=== PATIENT | male | born 1955 | race African-American/Black ===

== ENCOUNTER 2021-02-02 08:44 | Inpatient (IN) | payer MEDICARE, OTHER ==
[~2021-02-02] VITALS: Ht 172.7 cm; Wt 104.8 kg
[2021-02-02 10:01] LABS: BASOPHILS % 0.5 % (0.0-2.0); EOSINOPHILS % 0.8 % (0.0-5.0); HEMATOCRIT. 41.8 % (42.0-52.0); HEMOGLOBIN. 13.5 g/dL (14.0-18.0); LYMPHOCYTES % 19.4 % (20.0-50.0); MEAN CORPUSCULAR HEMOGLOBIN 29.9 pg (28.0-32.0); MEAN CORPUSCULAR VOLUME 92.9 fL (80.0-94.0); MEAN PLATELET VOLUME 10.5 fl (7.4-10.4); MONOCYTES % 5.1 % (2.0-8.0); NEUTROPHILS % 74.2 % (40.0-76.0); PLATELET 210 x1000/uL (130-400); RED CELL DISTRIBUTION WIDTH 14.5 % (11.6-14.6)
[2021-02-02 10:07] LABS: CHLORIDE 109 mEq/L (98-107)
[2021-02-02] MEDS ORDERED: IOHEXOL-300 100 ML BOTTLE ONE (11:43)
[2021-02-02 14:10] LABS: CLARITY URINE CLEAR (CLEAR); COLOR URINE YELLOW (YELLOW); KETONES URINE NEGATIVE (NEGATIVE); LEUKOCYTE ESTERASE URINE NEGATIVE (NEGATIVE); NITRITE URINE NEGATIVE (NEGATIVE); OCCULT BLOOD URINE NEGATIVE (NEGATIVE); PH URINE 7.5 (4.5-8.0); PROTEIN URINE TRACE (NEGATIVE); SPECIFIC GRAVITY URINE 1.013 (1.005-1.030); UROBILINOGEN URINE 0.2 E.U./dL (0.2-1.0)
[2021-02-02] MEDS ORDERED: IOHEXOL-350 100 ML BOTTLE ONE ×2 (17:16→23:13)
[2021-02-02] MEDS ORDERED: HEPARIN 5000 UNITS/ML VIAL IV NR (18:15)
[2021-02-02] MEDS ORDERED: HEPARIN 5000 UNITS/ML VIAL IV PRN ×3 (18:15→18:46)
[2021-02-02] MEDS ORDERED: ASPIRIN 325MG EC TABLET PO NR (18:15)
[2021-02-02] MEDS ORDERED: HEPARIN 25,000 UNITS PREMIX 250 ML IV PRN (18:15)
[2021-02-02 22:00] VITALS: BP 181/95
[2021-02-02] MEDS: AMLODIPINE 10MG TABLET PO SCH (23:23)
[2021-02-03] VITALS: BP 143/62
[2021-02-03] MEDS ORDERED: UBID10CA4 MT (00:08)
[2021-02-03] MEDS ORDERED: METOPROLOL PO (00:08)
[2021-02-03] MEDS ORDERED: AMLODIPINE PO (00:08)
[2021-02-03] MEDS ORDERED: ASPI-864 MT (00:08)
[2021-02-03 04:00] VITALS: BP 138/43
[2021-02-03 08:00] VITALS: BP 166/52
[2021-02-03] MEDS ORDERED: ENOXAPARIN 40MG/0.4ML SYR SUBCUT SCH (09:00)
[2021-02-03] MEDS ORDERED: PNEUMOCOCCAL 23-VAL P-SAC VAC 0.5 ML IM ONE (10:00)
[2021-02-03] MEDS: ASPIRIN 81MG TABLET PO SCH (11:44)
[2021-02-03] MEDS: AMLODIPINE 10MG TABLET PO SCH (11:44)
[2021-02-03 12:00] VITALS: BP 176/72
[2021-02-03] MEDS: HYDRALAZINE HCL 50MG TABLET PO SCH ×2 (14:40→21:45)
[2021-02-03 16:00] VITALS: BP 167/66
[2021-02-03] MEDS ORDERED: IPRATROPIUM/ALBUTEROL 0.5-3(2.5)MG/3ML NEB HHN PRN (17:30)
[2021-02-03] MEDS ORDERED: DOCUSATE SODIUM 100MG CAPSULE PO PRN (17:30)
[2021-02-03] MEDS ORDERED: NALOXONE HCL 0.4MG/ML VIAL IV PRN (17:30)
[2021-02-03] MEDS ORDERED: CLONIDINE 0.1MG TABLET PO PRN (17:30)
[2021-02-03] MEDS ORDERED: HYDROCODONE/ACETAMINOPHEN 5/325MG TABLET PO PRN (17:30)
[2021-02-03] MEDS ORDERED: ACETAMINOPHEN 325MG TABLET PO PRN (17:30)
[2021-02-03 19:42] VITALS: BP 170/68
[2021-02-03] MEDS ORDERED: DOPAMINE 400MG/250ML PREMIX 250 ML IV PRN (20:00)
[2021-02-04 00:05] VITALS: BP 123/56
[2021-02-04 00:23] LABS: CREATINE KINASE MB FRACTION 1.1 ng/mL (0.5-3.6)
[2021-02-04 04:00] VITALS: BP 144/62
[2021-02-04] MEDS: HYDRALAZINE HCL 50MG TABLET PO SCH ×3 (05:41→20:52)
[2021-02-04 06:59] LABS: BASOPHILS % 0.3 % (0.0-2.0); EOSINOPHILS % 1.7 % (0.0-5.0); HEMATOCRIT. 42.2 % (42.0-52.0); HEMOGLOBIN. 13.9 g/dL (14.0-18.0); LYMPHOCYTES % 21.9 % (20.0-50.0); MEAN CORPUSCULAR HEMOGLOBIN 30.2 pg (28.0-32.0); MEAN CORPUSCULAR VOLUME 91.8 fL (80.0-94.0); MEAN PLATELET VOLUME 10.8 fl (7.4-10.4); MONOCYTES % 9.8 % (2.0-8.0); NEUTROPHILS % 66.3 % (40.0-76.0); PLATELET 197 x1000/uL (130-400); RED BLOOD CELL COUNT 4.59 mill/uL (4.7-6.1); RED CELL DISTRIBUTION WIDTH 14.4 % (11.6-14.6)
[2021-02-04 07:06] LABS: CHLORIDE 109 mEq/L (98-107)
[2021-02-04 07:18] LABS: PHOSPHORUS 3.3 mg/dL (2.5-4.9); T4 FREE 1.17 ng/dL (0.76-1.46)
[2021-02-04 07:19] LABS: LDL CHOLESTEROL 82 mg/dL (5-100)
[2021-02-04 07:20] LABS: HDL CHOLESTEROL 42 mg/dL (40-59)
[2021-02-04 08:00] VITALS: BP 164/62
[2021-02-04] MEDS: APIXABAN 5 MG TABLET PO SCH ×2 (08:50→17:09)
[2021-02-04] MEDS: AMLODIPINE 10MG TABLET PO SCH (08:51)
[2021-02-04] MEDS: ASPIRIN 81MG TABLET PO SCH (08:51)
[2021-02-04 12:00] VITALS: BP 156/70
[2021-02-04 16:00] VITALS: BP 184/70
[2021-02-04] MEDS: HYDRALAZINE 20MG/ML VIAL IV PRN (18:57)
[2021-02-04 20:00] VITALS: BP 164/80
[2021-02-04] MEDS: MAGNESIUM/ALUMINUM HYDROXIDE/SIMETHICONE 30ML UDC PO PRN (20:52)
[2021-02-05] VITALS (7 sets, daily range): BP systolic 143–173; BP diastolic 56–74
[2021-02-05] MEDS: HYDRALAZINE HCL 50MG TABLET PO SCH ×3 (06:10→21:16)
[2021-02-05 06:26] LABS: BASOPHILS % 0.4 % (0.0-2.0); EOSINOPHILS % 1.3 % (0.0-5.0); HEMATOCRIT. 39.5 % (42.0-52.0); HEMOGLOBIN. 13.2 g/dL (14.0-18.0); LYMPHOCYTES % 25.1 % (20.0-50.0); MEAN CORPUSCULAR HEMOGLOBIN 30.2 pg (28.0-32.0); MEAN CORPUSCULAR VOLUME 90.4 fL (80.0-94.0); MEAN PLATELET VOLUME 10.5 fl (7.4-10.4); MONOCYTES % 8.9 % (2.0-8.0); NEUTROPHILS % 64.3 % (40.0-76.0); PLATELET 220 x1000/uL (130-400); RED BLOOD CELL COUNT 4.37 mill/uL (4.7-6.1); RED CELL DISTRIBUTION WIDTH 13.9 % (11.6-14.6)
[2021-02-05 07:55] LABS: CHLORIDE 109 mEq/L (98-107)
[2021-02-05] MEDS: APIXABAN 5 MG TABLET PO SCH ×2 (08:36→18:03)
[2021-02-05] MEDS: AMLODIPINE 10MG TABLET PO SCH (08:36)
[2021-02-05] MEDS: HYDRALAZINE 20MG/ML VIAL IV PRN (08:37)
[2021-02-05] MEDS ORDERED: MAGNESIUM/ALUMINUM HYDROXIDE/SIMETHICONE 30ML UDC PO PRN (08:45)
[2021-02-05] MEDS: MAGNESIUM/ALUMINUM HYDROXIDE/SIMETHICONE 30ML UDC PO PRN (10:09)
[2021-02-05] MEDS: ASPIRIN 81MG TABLET PO SCH (10:12)
[2021-02-05] MEDS ORDERED: MAGNESIUM/ALUMINUM HYDROXIDE/SIMETHICONE 30ML UDC PO NR (16:00)
[2021-02-05] MEDS ORDERED: VISCOUS LIDOCAINE 2% 15 ML UDC PO NR (16:00)
[2021-02-05] MEDS ORDERED: DIPHENHYDRAMINE 12.5MG/5ML UDC PO NR (16:00)
[2021-02-05] MEDS: LOSARTAN POTASSIUM 50 MG TABLET PO SCH (16:19)
[2021-02-06] VITALS: BP 138/66
[2021-02-06 04:00] VITALS: BP 140/65
[2021-02-06] MEDS: HYDRALAZINE HCL 50MG TABLET PO SCH (05:26)
[2021-02-06 08:00] VITALS: BP 180/68
[2021-02-06] MEDS: ASPIRIN 81MG TABLET PO SCH (09:32)
[2021-02-06] MEDS: AMLODIPINE 10MG TABLET PO SCH (09:32)
[2021-02-06] MEDS: APIXABAN 5 MG TABLET PO SCH (09:32)
[2021-02-06] MEDS: LOSARTAN POTASSIUM 50 MG TABLET PO SCH (09:32)
[2021-02-06 10:37] VITALS: BP 136/71
[2021-02-06] MEDS ORDERED: AMLO10TA80 PO (11:27)
[2021-02-06] MEDS ORDERED: OMEP20CA14 MT (11:27)
[2021-02-06] MEDS ORDERED: APIX5TAB MT (11:27)
[2021-02-06] MEDS ORDERED: HYDR100T26 MT (11:27)
[2021-02-06] MEDS ORDERED: HYDRALAZINE HCL 25MG TABLET PO SCH (14:00)
== END 2021-02-06 11:00 | disposition home or self-care (01) | DRG 291 ==
LOC: ER 08:44 → 8WST 16:51 → ENRESERV 19:28
PROVIDERS: ADMIT Internal Medicine; ATTEND Internal Medicine
DX: I11.0 Hypertensive heart disease with heart failure (principal); I50.31 Acute diastolic (congestive) heart failure; G90.8 Other disorders of autonomic nervous system; I48.91 Unspecified atrial fibrillation; K21.9 Gastro-esophageal reflux disease without esophagitis; K76.1 Chronic passive congestion of liver; R73.9 Hyperglycemia, unspecified; E80.6 Other disorders of bilirubin metabolism; R00.1 Bradycardia, unspecified
CPT/HCPCS: 36415; 71045; 74174; 74177; 76700; 80048; 80053; 80061; 80076; 81003; 82553; 83605; 83735; 83880; 84100; 84439; 84443; 84484; 85025; 90732; 93005; 93306; 93970; 99285; J0360; J1644; Q0163; Q9967